=== PATIENT | female | born 2000 | race Hispanic/Latino ===

== ENCOUNTER 2022-03-17 01:21 | Emergency (ER) | payer OTHER, SELFPAY ==
[2022-03-17] MEDS ORDERED: Dexamethasone 10 MG/ML VIAL ONE (02:06)
== END 2022-03-17 02:06 | disposition home or self-care (01) ==
LOC: CSHERS 01:21
DX: U07.1 COVID-19 (principal)
CPT/HCPCS: 99283; J1100

== ENCOUNTER 2022-08-25 22:52 | Emergency (ER) | payer OTHER | END 2022-08-26 02:35 | disposition left against medical advice (07) | LOC: CSHERS 22:52 | DX: Z53.21 Procedure and treatment not carried out due to patient leaving prior to being seen by health care provider (principal) | CPT/HCPCS: 99282 ==